=== PATIENT | male | born 1965 | race Two or more races ===

== ENCOUNTER 2017-01-07 13:19 | Emergency (ER) | payer OTHER ==
[2017-01-07] MEDS ORDERED: NO HOME MEDICATION XX (13:26)
[2017-01-07 14:14] LABS: URINE APPEARANCE CLEAR; URINE BILIRUBIN NEGATIVE (NEG); URINE BLOOD LARGE (NEG); URINE COLOR DARK YELLOW; URINE GLUCOSE (UA) MODERATE (NEG); URINE KETONE SMALL (NEG); URINE LEUKOCYTE ESTERASE NEGATIVE (NEG); URINE NITRITE NEGATIVE (NEG); URINE PROTEIN SMALL (NEG)
[2017-01-07 14:19] LABS: CREATININE 0.85 mg/dl (0.67-1.17); eGFR VALUE FOR BLACK >90 mL/Min
[2017-01-07 14:27] LABS: URINE WBC 0-1 /[HPF] (0-5)
[2017-01-07 14:28] LABS: URINE AMORPHOUS 1+
[2017-01-07] MEDS ORDERED: FLOMAX0.4 M1 PO (15:03)
[2017-01-07] MEDS ORDERED: NORCO 5-325 TA1 EACH PO (15:03)
[2017-01-07] MEDS ORDERED: COMPAZINE10 MG PO (15:03)
== END 2017-01-07 15:20 ==
LOC: EDMED 13:19
PROVIDERS: Emergency Medicine
DX: N13.2 Hydronephrosis with renal and ureteral calculous obstruction (principal)
CPT/HCPCS: J1885; J2270; J2405; J7030